=== PATIENT | male | born 1990 | race Caucasian/White ===

== ENCOUNTER 2016-11-30 14:05 | Emergency (ER) | payer MEDICAID, OTHER ==
[2016-11-30 14:45] VITALS: RESP 20; TEMP 98
[2016-11-30] MEDS ORDERED: BACITRACIN 500 U/GM OIN TOP ONE ×2 (15:06→15:17)
[2016-11-30 15:40] VITALS: BP 121/78; PULSE 75; O2SAT 95
== END 2016-11-30 15:30 | disposition home or self-care (01) ==
LOC: ED 14:05
DX: S61.214A Laceration without foreign body of right ring finger without damage to nail, initial encounter (principal); S61.316A Laceration without foreign body of right little finger with damage to nail, initial encounter; S61.411A Laceration without foreign body of right hand, initial encounter; W25.XXXA Contact with sharp glass, initial encounter
CPT/HCPCS: 73130; 99284